=== PATIENT | female | born 1945 | race Caucasian/White ===

== ENCOUNTER 2021-09-18 13:30 | Outpatient (CLI) | payer MEDICARE, SELFPAY ==
--- NOTE | ~2021-09-18 | US_ITS ---
EXAMINATION: US carotid duplex BI DATE: 09/18/2021 14:07 INDICATION: Dizziness. Right hand numbness. TECHNIQUE: Grayscale, color Doppler, and pulsed Doppler images of the cervical carotid arteries were obtained. The degree of vessel stenosis is placed in one of the following categories: normal, <50%, 5 0-69%, >=70% but less than near-occlusion, near-occlusion, or total occlusion. Note that percent sten osis relative to normal distal artery lumen diameter is indirectly measured from velocity measurement s as described by Edwardo, et al. Radiology 2003; 229:340-346. COMPARISON: None. FINDINGS: RIGHT: The right common carotid artery (CCA) peak systolic velocity (PSV) is 99 cm/s. The right internal car otid artery (ICA) PSV is 80 cm/s. The right ICA end-diastolic velocity (EDV) is 27 cm/s. The right IC A/CCA PSV ratio is 0.8. Grayscale and color Doppler images yield an estimate of <50% diameter reducti on from plaque in the ICA. There is antegrade flow in the right vertebral artery. LEFT: The left CCA PSV is 66 cm/s. The left ICA PSV is 116 cm/s. The left ICA EDV is 40 cm/s. The left ICA/ CCA PSV ratio is 1.3. Grayscale and color Doppler images yield an estimate of <50% diameter reduction from plaque in the ICA. There is antegrade flow in the left vertebral artery. IMPRESSION: 1. <50% stenosis in the right internal carotid artery. 2. <50% stenosis in the left internal carotid artery. Reviewed, dictated and finalized at location A. [employer]
--- NOTE | ~2021-09-18 | CT_ITS ---
EXAMINATION: CT brain wo con DATE: 09/18/2021 14:08 INDICATION: Right hand numbness TECHNIQUE: Computed tomography (CT) of the head was performed without intravenous contrast. The dose- length product was 605.33 mGy-cm. Automated exposure control and iterative reconstruction technique w ere employed. COMPARISON: None FINDINGS: No acute intracranial hemorrhage, infarction, mass or mass effect. No ventriculomegaly or m idline shift. No ventriculomegaly or midline shift. Basilar cisterns are patent. Paranasal sinuses an d mastoids are pneumatized. There are scattered mild periventricular and subcortical white matter eloisa nges, most likely related to small vessel ischemic disease (microangiopathy). IMPRESSION: 1. No acute intracranial abnormality. 2: Chronic age-related findings. Reviewed, dictated and finalized at location B. [employer]
== END 2021-09-18 13:31 | disposition home or self-care (01) ==
PROVIDERS: PCP Family Medicine; Visit Provider Physician Assistant
DX: R42 Dizziness and giddiness (principal); E78.5 Hyperlipidemia, unspecified; I10 Essential (primary) hypertension; I65.23 Occlusion and stenosis of bilateral carotid arteries
CPT/HCPCS: 70450; 93880

== ENCOUNTER 2021-10-09 10:05 | Outpatient (CLI) | payer MEDICARE, SELFPAY ==
--- NOTE | ~2021-10-09 | MM_ITS ---
EXAMINATION: MM screening [facility] BI w liana HISTORY: Screening mammogram TECHNIQUE: Craniocaudal and mediolateral oblique 3-D tomosynthesis images were obtained and synthetic 2-D images were generated. CAD analysis was submitted and interpreted. COMPARISON: 02/15/2019, 10/10/2017, 08/03/2010 BREAST PARENCHYMAL COMPOSITION: There are scattered areas of fibroglandular density. FINDINGS: There is no suspicious mass, calcification, or architectural distortion to suggest malignan cy in either breast. There has been no suspicious interval change. IMPRESSION: 1. No mammographic evidence of malignancy. 2. Recommend routine screening mammography in one year. BI-RADS Category 1: Negative Reviewed, dictated and finalized at location A.
== END 2021-10-09 10:06 | disposition home or self-care (01) ==
LOC: ANHIMG 10:06
PROVIDERS: PCP Family Medicine; Visit Provider Physician Assistant
DX: Z12.31 Encounter for screening mammogram for malignant neoplasm of breast (principal)
CPT/HCPCS: 77063; 77067

== ENCOUNTER 2022-01-20 10:18 | Day surgery (SDC) | payer MEDICARE, SELFPAY ==
[2022-01-12 13:46] VITALS: BMI 25.4
--- NOTE | 2022-01-20 08:59 | WPDHPUPDATE1 ---
History and Physical Update Update Date/Time: 01/20/22 08:59 History and Physical has been reviewed, including an updated exam of the patient. There are NO changes in the patient's condition. Risks, benefits, and alternatives have been discussed and questions answered. Patient agrees to proceed with procedure.
[2022-01-20 10:50] VITALS: BP 144/74; PULSE 74; RESP 16; TEMP 37.3; O2SAT 98; BMI 26.2
[2022-01-20] MEDS: OFLOXACIN 0.3% OPHTH SOLN 5 ML BTL 1 DROP AFFCTD EYE (10:53)
[2022-01-20] MEDS: TETRACAINE HCL 0.5% OPHTH SOLN 4 ML BTL 1 DROP AFFCTD EYE ×3 (10:55→11:05)
--- NOTE | 2022-01-20 11:02 | P.PNAN_ITS ---
Anes - Initial Pre Proc Eval Procedure: Operation Date: 01/20/22 11:30 Proposed Procedures p Cataract Extraction with Lens Implant-Right Eye - Jose Aviles MD Date/Time: 01/20/22 11:02 Surgeon: Jose Aviles MD Pre Op Diagnosis: Cataract Right Eye Patient Data Age: 76 Gender: F Height: 1.55 m Weight: 63 kg Last Vital Signs Temp 37.3 C 01/20/22 10:50 Pulse 74 01/20/22 10:50 Resp 16 01/20/22 10:50 BP 144/74 H 01/20/22 10:50 Pulse Ox 98 01/20/22 10:50 O2 Del Method Room Air 01/20/22 10:50 Allergies Allergy/AdvReac Type Severity Reaction Status Date / Time Penicillins Allergy Unknown Hives Verified 01/20/22 10:38 Home Medications Medication Instructions Recorded Confirmed Type Adult Low Dose Aspirin 81 mg 01/20/22 History Patient hx anesthesia problems: none Family hx anesthesia problems: none Results Review: All pre-operative results and documents have been reviewed as part of the pre-o perative evaluation. [facility] Past Medical History Medical History Arthritis Family History Family History Mother Family history of Alzheimer's disease Social History Social History Smoking status: Never smoker Second hand tobacco smoke exposure: No Alcohol intake: never Substance use: never Living arrangements: with family Gender identity (if verbalized by the patient): Female Sexual Orientation (if Verbalized by the Patient): Straight or Heterosexual Spiritual care concerns: No Anes - Eval Final PreProcedure Day of Procedure 01/20/22 11:02 Patient weight: overweight Heart: regular rate and rhythm Lungs: clear to auscultation Airway: Mallampati scale class II Neurological: alert and oriented Last oral intake: >/= 8 hours ASA classification: II Emergent: no Anesthetic plan: proceed Anesthesia type and monitoring: monitored anesthesia care and standard monitoring Results Review: All pre-operative results and documents have been reviewed as part of the pre- operative evaluation. Informed Consent: The patient's anesthetic plan and its attendant risks and benefits were discussed with the patient/family/POA. Questions were solicited and answers provided to the satisfaction of the patient/family/POA.
[2022-01-20] MEDS: LIDOCAINE HCL 2% JELLY 5 ML TUBE 1 APPLIC AFFCTD EYE (11:10)
[2022-01-20 12:11] VITALS: BP 133/69; PULSE 64; RESP 64; O2SAT 100
--- NOTE | 2022-01-20 12:18 | WPDANESPN ---
Anes - Prog Note Post-Op Date/Time: 01/20/22 12:18 Cardiovascular status: normal Respiratory status: normal Airway patency: baseline Mental status: baseline Post-Op hydration status: normal Vital Signs: Last Vital Signs Temp 37.3 C 01/20/22 10:50 Pulse 74 01/20/22 10:50 Resp 16 01/20/22 10:50 BP 144/74 H 01/20/22 10:50 Pulse Ox 98 01/20/22 10:50 O2 Del Method Room Air 01/20/22 10:50 Pain Score (VAS): 0 Patient Feedback: Patient satisfied with anesthetic care.
--- NOTE | 2022-01-20 12:20 | W.PM.PROC2 ---
Procedure Note - Detailed Date of Procedure 01/20/22 Pre-op Diagnosis Cataract Right Eye Post-op Diagnosis Same Procedure Performed Cataract Extraction (by Phacoemulsification) and lntraocular Lens Implant Surgeon Jose Aviles MD Description of Procedure The eye was anesthetized with topical 0.75% bupivacaine. After intravenous sedation and placement of monitors, the patient was prepped and draped in the usual sterile manner. A lid speculum was placed. A paracentesis was made, and preservative free 1% lidocaine was instilled in the anterior chamber. The anterior chamber was then filled with Viscoat viscoelastic. A gerard keratome was used to create the wound. Continuous tear anterior capsulotomy was performed. The lens was hydro dissected before being removed with phacoemulsification. The remaining lenticular cortex was removed with aspiration. The capsular bag was polished and filled with viscoelastic material. An intraocular lens was chosen, inspected, irrigated and placed within the capsular bag where it was seen to be centered and stable. The viscoelastic material was aspirated. The wound was closed and found to be watertight. Ciloxan drops were placed in the eye. The speculum was removed. A Campa shield was applied. The patient tolerated the procedure well and left the operating room in satisfactory condition. Implants See chart Complications None Condition Stable Disposition Same day
[2022-01-20] MEDS: acetaZOLAMIDE TAB 250 MG TABLET PO (12:24)
== END 2022-01-20 12:44 | disposition home or self-care (01) ==
PROVIDERS: PCP Family Medicine
PROC: (CPT 66983; principal; 2022-01-20 11:30)
DX: H25.11 Age-related nuclear cataract, right eye (principal)
CPT/HCPCS: 66984

== ENCOUNTER 2023-02-22 08:41 | Outpatient (CLI) | payer MEDICARE, SELFPAY ==
--- NOTE | ~2023-02-22 | DEXA_ITS ---
Bone Density Report Name: MARIELLA TRINIDAD Age: 77 Sex: Female Ethnicity: White Date of : 1945 Indication: postmenopausal; screening for osteoporosis; Referring Provider: RICKI SEGOVIA Study: Bone densitometry was performed. Exam Date: February 22, 2023 Accession number: [id number] Bone Density: Region BMD T-score Z-score Classification AP Spine(L1-L4) 1.164 1.1 3.5 Normal Femoral Neck (Left) 0.871 0.2 2.3 Normal Total Hip (Left) 0.890 -0.4 1.4 Normal Femoral Neck (Right) 0.857 0.1 2.2 Normal Total Hip (Right) 0.884 -0.5 1.4 Normal Total Hip Mean 0.887 -0.5 1.4 Normal World Health Organization criteria for BMD impression classify patients as: Normal (T-score at or above -1.0), Osteopenia (T-score between -1.0 and -2.5), or Osteoporosis (T-score at or below -2.5). 10-year Fracture Risk: FRAX not reported because: All T-scores for Spine Total, Hip Total, Femoral Neck at or above -1.0 Previous Exams: Region Exam Age BMD T-score BMD Change BMD Change Date g/cm2 vs Baseline vs Previous AP Spine (L1-L4) 02/22/2023 77 1.164 1.1 0.034 (3.0%)* 0.034 (3.0%)* 03/22/2018 72 1.130 0.8 Total Hip(Left) 02/22/2023 77 0.890 -0.4 -0.159 (-15.1% -0.159 (-15.1% 03/22/2018 72 1.048 0.9 Total Hip(Right) 02/22/2023 77 0.884 -0.5 -0.079 (-8.2%) -0.079 (-8.2%) 03/22/2018 72 0.964 0.2 *Denotes significance at 95% confidence level, LSC for AP Spine = 0.022 g/cm2, LSC for Total Hip = 0.027 g/cm2 Clinical Information Provided by Patient: Has used the following medications: Vitamin D Patient maximum height was 61 Menopause Age: 56 No regular weight bearing exercise Drinks caffeinated beverages Onset of menses at age 16 Number of children 3 Impression: The patient has normal bone mass. The BMD for the Total Hip(Left) decreased, changing by -15.1% since the last DXA exam. The BMD for the Total Hip(Right) decreased, changing by -8.2% since the last DXA exam. Discussion: BONE DENSITY IS ABOVE THE MINIMUM DESIRABLE LEVEL AT ALL SKELETAL SITES TESTED. This patient?s bone mineral density is above the minimum desirable level (T-score -1.0 or better) at all sites measured. The patient should follow a healthful lifestyle (good nutrition with adequate calcium and vitamin D, and appropriate weight-bearing exercise). Follow-Up: Consider repeating this study in 3 to 4 years to reassess this patient's status, or sooner if ther
--- NOTE | ~2023-02-22 | MM_ITS ---
EXAMINATION: MM screening [facility] BI w liana HISTORY: Screening mammogram TECHNIQUE: Craniocaudal and mediolateral oblique 3-D tomosynthesis images were obtained and synthetic 2-D images were generated. CAD analysis was submitted and interpreted. COMPARISON: 10/09/2021, 02/15/2019, 10/10/2017 bilateral screening mammogram examinations BREAST PARENCHYMAL COMPOSITION: There are scattered areas of fibroglandular density. FINDINGS: There is no evidence of suspicious mass, calcification, or architectural distortion to sugg est malignancy in either breast. There has been no suspicious interval change. IMPRESSION: 1. No mammographic evidence of malignancy. 2. Recommend routine screening mammography in one year. BI-RADS Category 1: Negative Reviewed, dictated and finalized at location A.
== END 2023-02-22 08:42 | disposition home or self-care (01) ==
PROVIDERS: PCP Family Medicine; Visit Provider Physician Assistant
DX: Z12.31 Encounter for screening mammogram for malignant neoplasm of breast (principal); Z78.0 Asymptomatic menopausal state
CPT/HCPCS: 77063; 77067; 77080

== ENCOUNTER 2024-05-14 08:47 | Outpatient (CLI) | payer MEDICARE, SELFPAY ==
--- NOTE | ~2024-05-14 | MM_ITS ---
EXAMINATION: MM screening [facility] BI w liana HISTORY: Screening TECHNIQUE: Craniocaudal and mediolateral oblique 3-D tomosynthesis images were obtained and synthetic 2-D images were generated. CAD analysis was submitted and interpreted. COMPARISON: Comparison to multiple prior studies sequentially, with oldest reviewed study dated 10/10. BREAST PARENCHYMAL COMPOSITION: Not dense: There are scattered areas of fibroglandular density. FINDINGS: There is no evidence of suspicious mass, calcification, or architectural distortion to sugg est malignancy in either breast. There has been no suspicious interval change. IMPRESSION: 1. No mammographic evidence of malignancy. 2. Recommend routine screening mammography in one year. BI-RADS Category 1: Negative Reviewed, dictated and finalized at location B.
== END 2024-05-14 08:48 | disposition home or self-care (01) ==
LOC: ANHIMG 08:50
PROVIDERS: PCP Family Medicine; Visit Provider Family Medicine
DX: Z12.31 Encounter for screening mammogram for malignant neoplasm of breast (principal)
CPT/HCPCS: 77063; 77067

== ENCOUNTER 2024-10-19 21:12 | Observation (INO) | payer MEDICARE, SELFPAY ==
--- NOTE | ~2024-10-19 | CT_ITS ---
EXAMINATION: CT brain wo con DATE: 10/20/2024 01:27 INDICATION: Visual changes. Right hand numbness. TECHNIQUE: Computed tomography (CT) of the head was performed without intravenous contrast. The mA wa s adjusted according to patient size. Iterative reconstruction technique was employed. The dose-lengt h product was 681.00 mGy-cm. COMPARISON: Head CT 09/18/2021 FINDINGS: There are scattered areas of low attenuation in the cerebral white matter. There is no intr acranial hemorrhage, acute infarction, or abnormal intracranial mass lesion. The ventricles are janeth l in size. There are likely changes of ocular lens replacement surgeries. The paranasal sinuses are c lear. The mastoid air cells are normal. IMPRESSION: 1. Mild nonspecific cerebral white matter disease, which likely represents chronic small vessel ische marbella disease. Reviewed, dictated and finalized at location A. IMPRESSION: 1. 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
--- NOTE | ~2024-10-19 | MR_ITS ---
EXAMINATION: MR brain/brain stem wo/w con DATE: 10/20/2024 11:26 INDICATION: Right hand numbness. TECHNIQUE: Magnetic resonance imaging (MRI) of the brain and brainstem was performed without and with 13 mL ProHance intravenous contrast. COMPARISON: CT 10/20/2024 FINDINGS: There are scattered areas of nonspecific increased T2-weighted signal intensity in the cere bral white matter. There is no intracranial hemorrhage, acute infarction, or abnormal intracranial ma ss lesion. The ventricles are normal in size. The paranasal sinuses are clear. There are likely rogers es of ocular lens replacement surgeries. The mastoid air cells are normal. IMPRESSION: 1. Mild nonspecific cerebral white matter disease, which likely represents chronic small vessel ische marbella disease. Reviewed, dictated and finalized at location A. IMPRESSION: 1. 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
--- NOTE | ~2024-10-19 | CT_ITS ---
EXAMINATION: CTA brain carotid DATE: 10/20/2024 01:27 INDICATION: Right hand numbness. Vision change. TECHNIQUE: Computed tomographic angiography (CTA) of the head was performed with 100 mL Omnipaque-350 intravenous contrast. CTA of the neck was performed with intravenous contrast. Automated exposure co ntrol and iterative reconstruction technique were employed. The dose-length product was 990.89 mGy-cm . Maximum intensity projection and volume rendered 3D-reconstructions were created by the [employer] t on a separate workstation. COMPARISON: Head CT 10/20/2024 FINDINGS: HEAD CTA: There are scattered areas of low attenuation in the cerebral white matter. There is no intr acranial hemorrhage, acute infarction, or abnormal intracranial mass lesion. The ventricles are janeth l in size. There are likely changes of ocular lens replacement surgeries. There is mild mucosal thick ening in the paranasal sinuses. The mastoid air cells are normal. Left vertebral artery is dominant. There is no significant stenosis of basilar artery or the posterior cerebral arteries. There is no si gnificant stenosis of the intracranial internal carotid arteries or anterior or middle cerebral arter ies. Anterior communicating artery is normal. The posterior communicating arteries are normal. There is no aneurysm. NECK CTA: There is mild scarring at the lung apices. There are no pathologically enlarged lymph nodes . There is no significant stenosis of the vertebral arteries. There is minimal plaque in the proximal internal carotid arteries. There is 0% stenosis of the proximal right internal carotid artery relati ve to normal distal artery lumen diameter (NASCET criteria). There is 0% stenosis of the proximal lef t internal carotid artery relative to normal distal artery lumen diameter. There is severe cervical s pondylosis. IMPRESSION: 1. Mild nonspecific cerebral white matter disease, which likely represents chronic small vessel ische marbella disease. 2. No aneurysm or significant intracranial arterial stenosis. 3. 0% stenosis of the proximal internal carotid arteries relative to normal distal artery lumen diame ters (NASCET criteria). Reviewed, dictated and finalized at location A. IMPRESSION: 1. 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 2. No aneurysm or significant intracranial arterial stenosis. 3. 0% stenosis of the proximal internal carotid arteries relative to normal dis scott artery lumen diameters (NASCET criteria).
--- NOTE | ~2024-10-19 | XR_ITS ---
EXAMINATION: XR chest 1V portable DATE: 10/20/2024 00:53 INDICATION: Cerebrovascular accident. TECHNIQUE: A single frontal view of the chest was obtained. COMPARISON: None. FINDINGS: There is no pneumonia, pleural effusion or pneumothorax. The heart size is normal. IMPRESSION: 1. No acute cardiopulmonary disease. Reviewed, dictated and finalized at location A.
--- OUTSIDE RECORDS SUMMARY | 2024-10-19 21:15 | XMS_ITS | Continuity of Care Document ---
Author Organization [facility] Address [address] [place] [address] Phone Care Team Providers Care Diet Attendant Name Role Phone Unavailable Unavailable Unavailable Allergies, Adverse Reactions, Alerts Substance Reaction Status Criticality Penicillins Rash Active No Information Procedures Procedure Date PER PM REEVAL EST PAT 65+ YR OFFICE/OUTPATIENT VISIT, [facility] Advance Directives Directive Yes / No Effective Date File Name No Information Encounters Encounter Description Practice Location Reason(s) For Visit Diagnoses Date Provider Providers Copied on Encounter [facility], [address] [place] [address], tel:[phone] [place] No Information 5 No Information PER PM REEVAL EST PAT 65+ YR [facility], [address] [place] [address], tel:[phone] [place] preventive exam (chief complaint) Physical exam, [facility] 4 Mario Manjula. [address] [place] [address], . tel:[phone] OFFICE/OUTPA TIENT VISIT, [facility], [address] [place] [address], tel:[phone] [place] cold symptoms (chief complaint) Acute bacterial rhinosinusiti s 4 Mario Manjula. [address] [place] [address]. [phone] Family History Family Member Type Diagnosis Age At Onset Maternal grandmother Problem (finding) at 93, Na tural Causes Brother Problem (finding) Alive and well Mother Problem (finding) alzheimer's disease Father Problem (finding) Mesothelioma Maternal grandfather Problem (finding) Heart Disease, at 79 Sister Problem (finding) epilepsy Paternal grandmother Problem (finding) at 103 Na tural Causes Sister Problem (finding) Alive and well Paternal grandfather Problem (finding) at 78 Isabella ural Causes Payers Payer name Insurance type Covered green party ID Authoriza tion(s) No Information Social History Type Description Quantity Date Captured Comments Sex Female Smoking Status No Information Chief Complaint And Reason For Visit No Information Reason For Referral Reason For Referral No Information History Of Present Illness Encounter Date Complaint History Of Prese nt Illness preventive exam Negative for men orrhagia. Details: Had one irregular pap 10-12 years ago otherwise always normal, last mammogram about 2 years ago normal. Negative for: breast discharge, breast lump(s) and breast pain. Positive for: breast self exam. Menopausal symptoms negative for: hot flashes and night sweats. Pertinent negatives include depression, vaginal discharge and vaginal itching. Additional information: (Healthy 67 year old active female, takes no medications. Labs 2 years ago, normal. Will need to get records from previous office. Has never had colonoscopy. Dexa scan about 2 years ago here. Gets yearly eye exams at [facility]. (We will have to get records to review. Patient is not interested today in colonoscopy or stool cards but will consider) cold symptoms Onset: 1 week ag o. Severity: severe. The patient describes the cough as persistent and productive (of green sputum). It occurs persistently. The problem has become gradually worse. Context: sick family member. There are no aggravating factors. There are no relieving factors. Associated symptoms include chills, cough, fatigue, fever, hoarseness, nasal congestion, post-nasal drainage and rhinitis. The patient does not have a history of allergies or asthma. Additional information: (Has been taking Mucinex with out relief. No chronic sinus problems or allergies. Did not get the flu shot this year. A few days ago seemed to improve but then got worse again last day or so). Functional Status Date Functional Assessmen t No Information Instructions Date Instruction Additional Infor nereyda Consider colonoscopy or stool ca rds Related to Physical exam, annual Increase fluids Related to Lower respiratory tract infection Patient instructed o n use of saline sprays. Related to Acute bacterial rhinosinusitis Tylenol of needed Related to Acu te bacterial rhinosinusitis Assessments Type Assessment Date No Information Patient Care Teams Name Effective Dates (start - stop) Status Members No Information
--- OUTSIDE RECORDS SUMMARY | 2024-10-19 21:15 | XMS_ITS | Continuity of Care Document ---
Author Organization [employer] Address [address] [place] [address] Phone Care Team Providers Care Associate Civil Engineer Name Role Phone Gentry PT,MPT,ATC, Vel Unavailable Unavai lable Procedures Procedure Date Therapeutic Activities Neuromuscular Re-Ed Therapeutic Exercise Therapeutic Activities Neuromuscular Re-Ed Therapeutic Exercise Therapeutic Activities Neuromuscular Re-Ed Therapeutic Exercise Manual Therapy Therapeutic Activities Neuromuscular Re-Ed Therapeutic Exercise Manual Therapy Therapeutic Activities Neuromuscular Re-Ed Therapeutic Exercise Manual Therapy Therapeutic Activities Neuromuscular Re-Ed Therapeutic Exercise Manual Therapy Therapeutic Activities Neuromuscular Re-Ed Therapeutic Exercise Manual Therapy Therapeutic Activities Neuromuscular Re-Ed Therapeutic Exercise Manual Therapy Therapeutic Activities Neuromuscular Re-Ed Therapeutic Exercise Manual Therapy Therapeutic Activities Neuromuscular Re-Ed Therapeutic Exercise Therapeutic Activities Neuromuscular Re-Ed Therapeutic Exercise Therapeutic Activities Neuromuscular Re-Ed Therapeutic Exercise Therapeutic Activities Neuromuscular Re-Ed Therapeutic Exercise Therapeutic Activities Neuromuscular Re-Ed Therapeutic Exercise Therapeutic Activities Neuromuscular Re-Ed Therapeutic Exercise Therapeutic Activities Neuromuscular Re-Ed Therapeutic Exercise Therapeutic Activities Neuromuscular Re-Ed Therapeutic Exercise Doc neg elder mal no plan PRES/ABSN URINE INCON ASSESS PT Evaluation Low Complexity Therapeutic Activities Neuromuscular Re-Ed Therapeutic Exercise Advance Directives Directive Yes / No Effective Date File Name No Information Encounters Encounter Description Practice Location Reason(s) For Visit Diagnoses Date Provider Providers Copied on Encounter [facility] [place] [address] [place] [address], [id number], tel:[phone] [place] No Information 4 [place], [place], . [facility] [place] [address] [place] [address], [id number], tel:[phone] [place] No Information 3 [place]. . Referring Provider: Mercedes Lopez, [address] [place], [address]. tel:[phone] [facility], [place], [id number], tel:[phone] [place] No Information 3 [place]. . Referring Provider: Mercedes Lopez, [address] [place], [address]. tel:[phone] [place] [address], [address], [place], [place], [id number], [place] tel:[phone] [place] No Information Jun-07 25- 3 [place]. . Referring Provider: Mercedes Lopez, [address] [place], [address]. tel:[phone] [place] [address] [address], [place], [id number], [place] tel:[phone] [place] No Information Dec-0 6- 3 [place]. . Referring Provider: Mercedes Lopez, [address] [place], [address]. tel:[phone] [place] [address], [address] [facility] [address], [place], [place], [id number], [place] tel:[phone] [place] No Information Dec-0 - 3 [place]. . Referring Provider: Mercedes Lopez, [address] [place], [address]. tel:[phone] [place] [address] [address], [place], [place], [id number], [place] tel:[phone] [place] No Information 2 3 [place]. . Referring Provider: Mercedes Lopez, [address] [place], [address]. tel:[phone] [place] [address], [address], [place], [place], [id number], [place] tel:[phone] [place] No Information 2 [facility] [place] [place]. Referring Provider: Mercedes Lopez, [address] [place], [address]. tel:[phone] [place] [address], [address], [place], [place], [id number], [place] tel:[phone] [place] No Information Nov-2 0-202 3 [place]. . Referring Provider: Mercedes Lopez, [address] [place] [address], [address]. tel:[phone] [place] [address], [address] [facility], [place], [place], [id number], tel:[phone] [place] No Information Nov-1 5-202 3 [place]. . Referring Provider: Mercedes Lopez, [address] [place] [address], [address]. tel:[phone] [place] [address] [place], [place] [address], [place], [place], [id number], [place] tel:[phone] [place] [address] No Information Nov-1 3-202 3 [place]. . Referring Provider: Mercedes Lopez, [address] [place] [address], [address]. tel:[phone] [place] [address] [address] [facility] [address], [place], [place], [id number], [place] tel:[phone] [place] [address] No Information Nov-0 8-202 3 [place]. . Referring Provider: Mercedes Lopez, [address] [place], [address]. tel:[phone] [place] [address] [place] [address], [place], [place], [id number], [place] tel:[phone] [place] No Information Nov-0 6-202 3 [place]. . Referring Provider: Mercedes Lopez, [address] [place] [address], [address]. tel:[phone] [place] [address] [address] [address], [place], [place], [id number], [place] tel:[phone] [place] No Information Nov-0 1-202 3 [place]. . Referring Provider: Mercedes Lopez, [address] [place] [address], [address]. tel:[phone] [place] [address] [address] [facility], [place], [place], [id number], [place] tel:[phone] [place] No Information 0-202 3 [place]. . Referring Provider: Mercedes Lopez, [address] [place], [address]. tel:[phone] [place] [address] [address] [address], [place], [place], [id number], [place] tel:[phone] [place] No Information Apr- 5-202 3 [place]. . Referring Provider: Mercedes Lopez, [address] [place] [address], [address]. tel:[phone] [place] [address], [id number], tel:[phone] [place] No Information 3-202 3 [place]. . Referring Provider: Mercedes Lopez, [address] [place], [address]. tel:[phone] [facility] [address], [id number], tel:[phone] [place] No Information 8- 3 [place]. . Referring Provider: Mercedes Lopez, [address] [place], [address]. tel:[phone] [facility] [address], [id number], tel:[phone] [place] Unspecified urinary incontinence 6- 3 [place]. . Referring Provider: Mercedes Lopez, [address] [place], [address]. tel:[phone] Family History Family Member Type Diagnosis Age At Onset No Information Payers Payer name Insurance type Covered democrat ID Mike castro(s) [employer] [id number] Social History Type Description Quantity Date Captured Comments Sex Female Smoking Status No Information Chief Complaint And Reason For Visit No Information Reason For Referral Reason For Referral No Information History Of Present Illness Encounter Date Complaint History Of Prese nt Illness No Information Functional Status Date Functional Assessmen t No Information Instructions Date Instruction Additional Infor mation Giving encouragement to exercise Related to Overweight Giving encouragement to exercise Related to Overweight Kegel exercises were explained to the patient. Related to Unspecified urinary incontinence Assessments Type Assessment Date No Information Patient Care Teams Name Effective Dates (start - stop) Status Members No Information
[2024-10-19 21:18] LABS: Glucose Point of Care 100 mg/dl (65-105)
[2024-10-19 21:25] VITALS: BP 163/73; PULSE 81; RESP 18; TEMP 36.8; O2SAT 98
--- OUTSIDE RECORDS SUMMARY | 2024-10-19 23:40 | XMS_ITS | Continuity of Care Document ---
Author Organization [facility] Address [address] [place] [address] Phone Care Team Providers Care Bingo Caller Name Role Phone Unavailable Unavailable Unavailable Allergies, Adverse Reactions, Alerts Substance Reaction Status Criticality Penicillins Rash Active No Information Procedures Procedure Date PER PM REEVAL EST PAT 65+ YR OFFICE/OUTPATIENT VISIT, [facility] Advance Directives Directive Yes / No Effective Date File Name No Information Encounters Encounter Description Practice Location Reason(s) For Visit Diagnoses Date Provider Providers Copied on Encounter [facility], [address] [place] [address], tel:[phone] K[place] No Information 5 No Information PER PM REEVAL EST PAT 65+ YR [facility], [address] [place] [address], tel:[phone] Kila preventive exam (chief complaint) [facility] 4 Mario Manjula. [address] [place] [address], . tel:[phone] OFFICE/OUTPA TIENT VISIT, [facility], [address] [place] [address], tel:[phone] Kila cold symptoms (chief complaint) Acute bacterial rhinosinusiti s 4 Mario Manjula. [address] [place] [address]. [phone] Family History Family Member Type Diagnosis Age [...] Causes Payers Payer name Insurance type Covered democrat ID Authoriza tion(s) No Information Social History [...] ago here. Gets yearly eye exams at [facility]. (We will have to get records to [...]
--- OUTSIDE RECORDS SUMMARY | 2024-10-19 23:40 | XMS_ITS | Continuity of Care Document ---
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 Name Role Phone Gentry PT,MPT,ATC, Vel Unavailable Unavai lable Procedures Procedure Date Therapeutic Activities Neuromuscular Re-Ed Therapeutic Exercise Therapeutic Activities Neuromuscular Re-Ed Therapeutic Exercise Therapeutic Activities Neuromuscular Re-Ed Therapeutic Exercise Manual Therapy Therapeutic Activities Therapeutic Exercise Neuromuscular Re-Ed Manual Therapy Therapeutic Activities Neuromuscular Re-Ed Therapeutic [...] Diagnoses Date Provider Providers Copied on Encounter [facility] [place] [address], [id number], tel:[phone] [place] No Information 4 [place], [place], . [facility] [place] [address], [id number], tel:[phone] [place] No Information 3 Oh[place]orge Baljeet. . Referring Provider: Mercedes Lopez, [address] [place], [address]. tel:[phone] [facility], [place], [place], [id number], tel:[phone] [place] No Information 3 [place] Baljeet. . Referring Provider: Mercedes Lopez, [address] [place], [address]. tel:[phone] [place] [address], [address], [place], [place], [id number], [place] tel:[phone] [place] No Information Jun-07 25- 3 [place] Baljeet. . Referring Provider: Mercedes Lopez, [address] [place], [address]. tel:[phone] [place] [address] [address], [place], [place], [id number], [place] tel:[phone] [place] No Information Dec-0 6- 3 [place] Baljeet. . Referring Provider: Mercedes Lopez, [address] [place], [address]. tel:[phone] [place] [address], [address], [place], [place], [id number], [place] tel:[phone] [place] No Information Dec-0 - 3 [place] Baljeet. . Referring Provider: Mercedes Lopez, [address] [place], [address]. tel:[phone] [place] [address] [address], [place], [place], [id number], [place] tel:[phone] [place] No Information 2 3 [place] Baljeet. . Referring Provider: Mercedes Lopez, [address] [place], [address]. tel:[phone] [place] [address], [address], [place], [place], [id number], [place] tel:[phone] [place] No Information 2 [facility] [place] [place]. Referring Provider: Mercedes Lopez, [address] [place], [address]. tel:[phone] [place] [address], [address], [place], [place], [id number], [place] tel:[phone] [place] No Information Nov-2 0-202 3 [place] Baljeet. . Referring Provider: Mercedes Lopez, [address] [place] [address], [address]. tel:[phone] [place] [address], [address], [place], [place], [id number], tel:[phone] [place] No Information Nov-1 5-202 3 [place] Baljeet. . Referring Provider: Mercedes Lopez, [address] [place] [address], [address]. tel:[phone] [place] [address] [place], [place] [address], [place], [place], [id number], [place] tel:[phone] [place] [address] No Information Nov-1 3-202 3 Oh[place]orge Baljeet. . Referring Provider: Mercedes Lopez, [address] [place] [address], [address]. tel:[phone] [place] [address] [address] [facility] [address], [place], [id number], [place] tel:[phone] [place] [address] No Information Nov-0 8-202 3 [place] Baljeet. . Referring Provider: Mercedes Lopez, [address] [place], [address]. tel:[phone] [place] [address] [place] [address], [place], [place], [id number], [place] tel:[phone] [place] No Information Nov-0 6-202 3 [place] Baljeet. . Referring Provider: Mercedes Lopez, [address] [place] [address], [address]. tel:[phone] [place] [address] [address] [address], [place], [place], [id number], [place] tel:[phone] [place] No Information Nov-0 1-202 3 Oh[place]orge Baljeet. . Referring Provider: Mercedes Lopez, [address] [place] [address], [address]. tel:[phone] [place] [address] [address] [facility], [place], [id number], [place] tel:[phone] [place] No Information 0-202 3 [place] Baljeet. . Referring Provider: Mercedes Lopez, [address] [place], [address]. tel:[phone] [place] [address] [address] [address], [place], [place], [id number], [place] tel:[phone] [place] No Information Apr- 5-202 3 Oh[place]orge Baljeet. . Referring Provider: Mercedes Lopez, [address] [place] [address], [address]. tel:[phone] [place] [address], [id number], tel:[phone] [place] No Information 3-202 3 [place] Baljeet. . Referring Provider: Mercedes Lopez, [address] [place], [address]. tel:[phone] [facility] [address], [id number], tel:[phone] [place] No Information 8- 3 Oh[place]orge Baljeet. . Referring Provider: Mercedes Lopez, [address] [place], [address]. tel:[phone] [facility] [address], [id number], tel:[phone] [place] Unspecified urinary incontinence 6- 3 [place]in Linden. . Referring Provider: Mercedes Lopez, [address] [place], [address]. tel:[phone] Family History Family Member Type Diagnosis Age At Onset No Information Payers Payer name Insurance type Covered constitution party ID Mike castro(s) [employer] [id number] Social History Type Description Quantity Date Captured [...]
[2024-10-19 23:46] VITALS: BP 144/68; PULSE 75; RESP 17; O2SAT 97
[2024-10-19 23:52] VITALS: PULSE 78; RESP 17; O2SAT 97
[2024-10-20] VITALS (29 sets, daily range): BP systolic 104–142; BP diastolic 48–71; PULSE 61–82; RESP 12–32; TEMP 36.3; O2SAT 95–100; BMI 27.1
--- NOTE | 2024-10-20 00:09 | ECG_ITS ---
Test Date: 2024-10-20 00:20:35 Measurements Intervals [place]win Rate: 73 P: 34 IN: 159 QRS: -21 QRSD: 90 T: 29 QT: 369 QTc: 409 Interpretive Statements SINUS RHYTHM LOW QRS VOLTAGE IN PRECORDIAL LEADS [QRS DEFLECTION < 1.0 mV IN CHEST LEADS] POSSIBLE RIGHT VENTRICULAR CONDUCTION DELAY [RSR (QR) IN V1/V2] MINIMAL VOLTAGE CRITERIA FOR LVH, CONSIDER NORMAL VARIANT [MEETS CRITERIA IN ONE OF: R(aVL), S(V1), R(V5), R(V5/V6)+S(V1)] POSSIBLE ANTERIOR MYOCARDIAL INFARCTION , OF INDETERMINATE AGE [30 ms Q WAVE IN V3/V4, OR R < 0.2 mV IN V4] ABNORMAL ECG Electronically Signed On 10-20-2024 10:01:41 CDT by Nader Hernandez M.D.
[2024-10-20 00:25] LABS: Glucose Point of Care 106 mg/dl (65-105)
[2024-10-20 00:27] LABS: Basophils Absolute Auto 0.1 K/mm3 (0.0-0.1); Basophils Percent Auto 0.6 % (0.2-1.2); Eosinophils Percent Auto 0.3 % (0-4.4); Hematocrit 39.6 % (37.0-47.0); Hemoglobin 12.5 g/dL (12.0-15.0); Immature Granulocyte Absolute 0.04 K/mm3 (0.00-0.031); Immature Granulocyte Percent A 0.5 % (0-0.5); Lymphocytes Absolute Auto 2.23 K/mm3 (0.9-3.2); Lymphocytes Percent Auto 25.6 % (18.3-44.2); Mean Corpuscular HGB Conc 31.6 g/dl (32-36); Mean Corpuscular Hemoglobin 25.6 pg (26-34); Mean Corpuscular Volume 81.1 fl (80-100); Mean Platelet Volume 9.7 fl (7.4-10.4); Monocytes Absolute Auto 0.6 K/mm3 (0.1-0.6); Monocytes Percent Auto 6.7 % (2.6-8.5); Neutrophils Absolute Auto 5.8 K/mm3 (1.3-6.7); Neutrophils Percent Auto 66.3 % (45.5-73.1); Platelet Count Result 228 k/mm3 (150-375); Red Blood Count 4.88 M/mm3 (4.2-5.4); Red Cell Distribution Width 14.2 % (11.5-14.5); White Blood Count 8.7 K/mm3 (4.5-10.0)
[2024-10-20 00:39] LABS: INR 0.9; Prothrombin Time 12.7 Seconds (11.1-14.7)
[2024-10-20 00:41] LABS: Alanine Aminotransferase 17 U/L (6-35); Albumin Level 4.5 g/dL (3.5-5.1); Alkaline Phosphatase 98 U/L (38-126); Anion Gap 11 mmol/L (4-12); Aspartate Amino Transferase 22 U/L (14-36); Bilirubin,Total 0.5 mg/dL (0.2-1.3); Blood Urea Nitrogen 22 mg/dL (7-17); Calcium 9.6 mg/dL (8.4-10.2); Carbon Dioxide 23 mmol/L (22-30); Chloride 105 mmol/L (98-107); Estimated CRCL calculation 46 ml/min; Estimated Glomerular Filt Rate > 60; Glucose 105 mg/dL (65-110); Potassium 3.9 mmol/L (3.4-5.0); Sodium 139 mmol/L (137-145)
[2024-10-20 00:52] LABS: Troponin I < 0.012 ng/mL (0.000-0.034)
--- NOTE | 2024-10-20 02:43 | ED_ITS ---
HPI - General Adult General Chief complaint: Altered Mental Status Stated complaint: vision Time Seen by Provider: 10/19/24 23:23 History of Present Illness HPI narrative: This is a 78-year-old female presenting for altered mental status. At 7:00 p.m. the patient was sitting with her watching TV. All the sudden she developed visual changes which she describes as wavy lines in front of her vision and she developed right hand numbness. During this time when she was talking to her she could not recall many normal events that happened day. He did not notice any slurred speech or facial droop but stated her speech pattern had changed. This lasted approximately 30 minutes before she returned back to baseline. Related Data Home Medications ?Medication ?Instructions ?Recorded ?Confirmed ?Last Taken ?Type No Home Medications 11/04/23 09/05/24 Unknown History Allergies Allergy/AdvReac Type Severity Reaction Status Date / Time Penicillins Allergy Unknown Hives Verified 10/19/24 21:15 [facility] Past Medical History Medical History Arthritis Family History Family History Mother Family history of Alzheimer's disease Social History Social History Smoking status: Never smoker Second hand tobacco smoke exposure: No Alcohol intake: never Substance use: never Living arrangements: with family Occupation/Education: retired Gender identity (if verbalized by the patient): Female Sexual Orientation (if Verbalized by the Patient): Straight or Heterosexual Spiritual care concerns: No Exam 2 Narrative: APPEARANCE: No apparent distress. Head: atraumatic. EYES: EOMI, NOSE: Atraumatic NECK: Trachea midline RESPIRATORY: No increased rate of breathing CARDIOVASCULAR: RRR, ABDOMINAL: Non-distended MUSCULOSKELETAl: No obvious deformities NEURO: Alert. Cranial nerves 2-12 grossly intact. Sensation light touch, motor function cerebellar function intact for 4 extremities. Gait exam was normal. SKIN:: Warm, dry. Normal color PSYCHIATRIC: Normal affect NIH Stroke Scale/Score (NIHSS) from [employer] on 10/20/2024 All calculations should be rechecked by clinician prior to use RESULT SUMMARY: 0 points NIH Stroke Scale INPUTS: 1A: Level of consciousness ?> 0 = Alert; keenly responsive 1B: Ask month and age ?> 0 = Both questi ons right 1C: 'Blink eyes' & 'squeeze hands' ?> 0 = Performs both tasks 2: Horizontal extraocular movements ?> 0 = Normal 3: Visual pierre ?> 0 = No visual loss 4: Facial palsy ?> 0 = Normal symmetry 5A: Left arm motor drift ?> 0 = No drift for 10 seconds 5B: Right arm motor drift ?> 0 = No drif t for 10 seconds 6A: Left leg motor drift ?> 0 = No drift for 5 seconds 6B: Right leg motor drift ?> 0 = No drif t for 5 seconds 7: Limb Ataxia ?> 0 = No ataxia 8: Sensation ?> 0 = Normal; no sensory l oss 9: Language/aphasia ?> 0 = Normal; no ap hasia 10: Dysarthria ?> 0 = Normal 11: Extinction/inattention ?> 0 = No abn ormality Course Vital Signs Vital signs: Vital Signs Temperature 98.2 F 10/19/24 21:25 Pulse Rate 81 10/19/24 21:25 Respiratory Rate 18 10/19/24 21:25 Blood Pressure 163/73 H 10/19/24 21:25 Pulse Oximetry 98 10/19/24 21:25 Oxygen Delivery Room Air 10/19/24 21:25 Temperature 98.2 F 10/19/24 21:25 Pulse Rate 66 10/20/24 03:01 Respiratory Rate 17 10/20/24 03:01 Blood Pressure 136/69 10/20/24 03:01 Pulse Oximetry 98 10/20/24 03:01 Oxygen Delivery Room Air 10/20/24 00:28 Medical Decision Making [facility] Narrative Medical decision making narrative: -Course: 78-year-old female presenting with a 30 minute episode of confusion/forgetfulness and right hand numbness. She is currently asymptomatic. NIH is 0. CT brain unremarkable. CTA without significant stenosis or dissection. Urine with 11-20 white blood cells and +1 leuk esterase. She will be started on ceftriaxone until culture results return. Patient will be admitted the hospital for further evaluation her transient neurologic event. -DDX includes but is not limited to: TIA/CVA, dehydration, Infection, delirium, transient amnesia -Independent interpretation of studies: Labs imaging reviewed Independent EKG interpretation: Rhythm [sinus], Rate [73], [place] -[normal], MI -[normal], QRS [narrow], QTC [normal], T waves -[negative for concerning inversions], ST Segments - [Negative for concerning elevations] Final interpretations: [Normal Sinus Rhythm] Vital Signs Vital Signs: Vital Signs Temperature 98.2 F 10/19/24 21:25 Pulse Rate 81 10/19/24 21:25 Respiratory Rate 18 10/19/24 21:25 Blood Pressure 163/73 H 10/19/24 21:25 Pulse Oximetry 98 10/19/24 21:25 Oxygen Delivery Room Air 10/19/24 21:25 Temperature 98.2 F 10/19/24 21:25 Pulse Rate 66 10/20/24 03:01 Respiratory Rate 17 10/20/24 03:01 Blood Pressure 136/69 10/20/24 03:01 Pulse Oximetry 98 10/20/24 03:01 Oxygen Delivery Room Air 10/20/24 00:28 Lab Data 10/20/24 00:19 10/20/24 00:19 Labs: Lab Results 10/19/24 10/20/24 10/20/24 Range/Units 21:16 00:19 00:22 WBC 8.7 (4.5-10.0) K/mm3 RBC 4.88 (4.2-5.4) M/mm3 Hgb 12.5 (12.0-15.0) g/dL Hct 39.6 (37.0-47.0) % MCV 81.1 (80-100) fl MCH 25.6 L (26-34) pg MCHC 31.6 L (32-36) g/dl RDW 14.2 (11.5-14.5) % Plt Count 228 (150-375) k/mm3 MPV 9.7 (7.4-10.4) fl Immature Gran % (Auto) 0.5 (0-0.5) % Neut % (Auto) 66.3 (45.5-73.1) % Lymph % (Auto) 25.6 (18.3-44.2) % [place] % (Auto) 6.7 (2.6-8.5) % Eos % (Auto) 0.3 (0-4.4) % Baso % (Auto) 0.6 (0.2-1.2) % Lymph # (Auto) 2.23 (0.9-3.2) K/mm3 [place] # (Auto) 0.6 (0.1-0.6) K/mm3 Eos # (Auto) 0.0 (0-0.3) K/mm3 Baso # (Auto) 0.1 (0.0-0.1) K/mm3 Abs Immat Gran (auto) 0.04 H (0.00-0.031) K/mm3 Absolute Neuts (auto) 5.8 (1.3-6.7) K/mm3 Absolute Nucleated RBC 0.000 (0.0-0.012) K/mm3 Nucleated RBC % 0.0 (0.0-0.2) % PT 12.7 (11.1-14.7) Seconds INR 0.9 APTT 27.0 (22.3-36.8) Seconds Sodium 139 (137-145) mmol/L Potassium 3.9 (3.4-5.0) mmol/L Chloride 105 (98-107) mmol/L Carbon Dioxide 23 (22-30) mmol/L Anion Gap 11 (4-12) mmol/L BUN 22 H (7-17) mg/dL Creatinine 0.75 (0.7-1.0) mg/dL Estim Creat Clear Calc 46 ml/min Estimated GFR > 60 (59 - ) Glucose 105 (65-110) mg/dL POC Capillary Glucose 100 106 H (65-105) mg/dl Calcium 9.6 (8.4-10.2) mg/dL Total Bilirubin 0.5 (0.2-1.3) mg/dL AST 22 (14-36) U/L ALT 17 (6-35) U/L Alkaline Phosphatase 98 (38-126) U/L Troponin I < 0.012 (0.000-0.034) ng/mL Total Protein 7.0 (6.3-8.2) g/dL Albumin 4.5 (3.5-5.1) g/dL Urine Color (Yellow) Urine Appearance (Clear) Urine pH (5.0-9.0) Ur Specific [place] (1.001-1.035) Urine Protein (Negative) mg/dL Urine Glucose (UA) (Negative) mg/dL Urine Ketones (Negative) mg/dL Ur Blood (Man) (Negative) Urine Nitrate (Negative) Urine Bilirubin (Negative) Urine Urobilinogen (<2.0) mg/dL Leukocyte Esterase Rfl (Negative) LAKE/UL Urine RBC (0-2) /hpf Urine WBC (0-3) /hpf Ur Squamous Epith Cells (Few) /hpf Urine Bacteria /hpf Urine Casts 10/20/24 Range/Units 02:52 WBC (4.5-10.0) K/mm3 RBC (4.2-5.4) M/mm3 Hgb (12.0-15.0) g/dL Hct (37.0-47.0) % MCV (80-100) fl MCH (26-34) pg MCHC (32-36) g/dl RDW (11.5-14.5) % Plt Count (150-375) k/mm3 MPV (7.4-10.4) fl Immature Gran % (Auto) (0-0.5) % Neut % (Auto) (45.5-73.1) % Lymph % (Auto) (18.3-44.2) % [place] % (Auto) (2.6-8.5) % Eos % (Auto) (0-4.4) % Baso % (Auto) (0.2-1.2) % Lymph # (Auto) (0.9-3.2) K/mm3 [place] # (Auto) (0.1-0.6) K/mm3 Eos # (Auto) (0-0.3) K/mm3 Baso # (Auto) (0.0-0.1) K/mm3 Abs Immat Gran (auto) (0.00-0.031) K/mm3 Absolute Neuts (auto) (1.3-6.7) K/mm3 Absolute Nucleated RBC (0.0-0.012) K/mm3 Nucleated RBC % (0.0-0.2) % PT (11.1-14.7) Seconds INR APTT (22.3-36.8) Seconds Sodium (137-145) mmol/L Potassium (3.4-5.0) mmol/L Chloride (98-107) mmol/L Carbon Dioxide (22-30) mmol/L Anion Gap (4-12) mmol/L BUN (7-17) mg/dL Creatinine (0.7-1.0) mg/dL Estim Creat Clear Calc ml/min Estimated GFR (59 - ) Glucose (65-110) mg/dL POC Capillary Glucose (65-105) mg/dl Calcium (8.4-10.2) mg/dL Total Bilirubin (0.2-1.3) mg/dL AST (14-36) U/L ALT (6-35) U/L Alkaline Phosphatase (38-126) U/L Troponin I (0.000-0.034) ng/mL Total Protein (6.3-8.2) g/dL Albumin (3.5-5.1) g/dL Urine Color Yellow (Yellow) Urine Appearance Clear (Clear) Urine pH 5.5 (5.0-9.0) Ur Specific [place] > 1.045 H (1.001-1.035) Urine Protein Negative (Negative) mg/dL Urine Glucose (UA) Negative (Negative) mg/dL Urine Ketones Negative (Negative) mg/dL Ur Blood (Man) Non-hemolyzed trace H (Negative) Urine Nitrate Negative (Negative) Urine Bilirubin Negative (Negative) Urine Urobilinogen 0.2 (<2.0) mg/dL Leukocyte Esterase Rfl 1+ H (Negative) LAKE/UL Urine RBC 0-2 (0-2) /hpf Urine WBC 11-20 H (0-3) /hpf Ur Squamous Epith Cells None seen (Few) /hpf Urine Bacteria None seen /hpf Urine Casts 0-2 Discharge Plan Discharge Clinical Impression: Transient amnesia, Acute UTI, Hand numbness Patient Disposition: Home, Self-Care Condition: Stable Instructions: Antibiotic Form Patient Language: Bulgarian Prescriptions: No Action amlodipine 5 mg tablet 5 mg PO DAILY Qty: 90 1RF No Home Medications Follow-up/Referrals: Eddie Bravo MD [Primary Care Provider] -
[2024-10-20 03:04] LABS: Add Urine Microscopic? YES; Appearance Urine Clear (Clear); Bacteria Urine None Seen /hpf; Bilirubin Urine Negative (Negative); Blood Urine Non-Hemolyzed Trace (Negative); Color Urine Yellow (Yellow); Glucose Urine UA Negative (Negative); Ketones Urine Negative (Negative); Leukocyte Esterase Ur 1+ LEU/UL (Negative); Nitrate Urine Negative (Negative); Non Pathogenic Casts 0-2; Protein Urine Negative (Negative); RBC Urine 0-2 /hpf (0-2); Specific Grav Ur > 1.045 (1.001-1.035); Squamous Epithelial Cell Urine None Seen /hpf (Few); Urobilinogen Urine 0.2 mg/dL (<2.0); pH Urine 5.5 (5.0-9.0)
[2024-10-20] MEDS: SODIUM CHLORIDE 0.9% IV 1,000 ML 999 ML IV CONT (03:50)
--- NOTE | 2024-10-20 05:00 | ADMGEN ---
This patient, Josey Vazquez, was admitted to Medical Room 245-. Patient/family oriented to hospital policies and general routines including ID bracelet, bed and alarms, visiting hours, pain management, procedures, bathroom and other care routines, personal items, smoking policy, room service/diet, and visiting hours. Information on how to activate the Rapid Response Team has been discussed. Patient/Family are encouraged to report perceived risks to care and to ask questions if they do not understand what they are told or what they should do.
[2024-10-20] MEDS: ASPIRIN 81 MG ENTERIC TABLET PO (08:15)
[2024-10-20] MEDS: ENOXAPARIN 40 MG/0.4 ML SYRINGE SUB-Q (08:15)
[2024-10-20 09:00] LABS: Cholesterol 206 mg/dL (0-200); HDL Direct 62 mg/dL; Magnesium 1.9 mg/dL (1.6-2.3); Triglycerides 147 mg/dL (<150)
[2024-10-20 09:10] LABS: Hemoglobin A1C 5.4 % (<5.7)
[2024-10-20 09:11] LABS: LDL Cholesterol Direct 93 mg/dL
--- NOTE | 2024-10-20 09:24 | P.HP_ITS ---
H&P: HPI History of Present Illness Date/Time: 10/20/24 09:24 Chief Complaint: AMS/Hand numbness Narrative: Patient is a 78-year-old female who presented to the emergency department with complaints of altered mental status and hand numbness. Patient reports around 1900 prior to arrival she developed a sudden onset wavy lines to her vision visual changes and right hand numbness. Patient stated at time of event she does not recall events however did report she did not notice any facial droop or slurred speech however her pattern have speech and change. patient states symptoms resolved within 30 minutes and currently with no deficits. patient reports a past medical history of arthritis currently on no home medications. initial findings in the emergency department showed a neg ative CT head if any current acute intracranial process, NIH score was 0 as reported in ED. CTA showed no significant stenosis, labs were reviewed which was suspicious for urinary tract infection which time patient was started on IV ceftriaxone otherwise all other labs unremarkable and vitals stable. patient was admitted for further observation for TIA versus CVA with plan for MRI brain. patient denied any chest pain, shortness a breath, dizziness, current visual changes, nausea, vomiting, or extremity weakness. Review of Systems 2 Review of Systems: All systems reviewed & are unremarkable except as noted in HPI and below PMFSH Past Medical History Medical History Arthritis Family History Family History Mother Family history of Alzheimer's disease Social History Social History Smoking status: Never smoker Second hand tobacco smoke exposure: No Alcohol intake: never Substance use: never Substance use type: does not use Do You Feel Safe in your Home?: Yes Lack of Transportation: No Lack of Food: Never True Current Housing: I Have Housing Concerned About Future Housing: No Difficulty Paying Gas/Electric Bills: No Difficulty Paying for Meds: No Currently Unemployed: No Education: Don't Know Difficulty w/ Childcare or Family Care: No Living arrangements: with family Occupation/Education: retired Gender identity (if verbalized by the patient): Female Sexual Orientation (if Verbalized by the Patient): Straight or Heterosexual Spiritual care concerns: No Meds Home Medications and Allergies Home Medications ?Medication ?Instructions ?Recorded ?Confirmed ?Type No Home Medications 11/04/23 10/20/24 History aspirin 81 mg tablet,delayed 81 mg PO QAM #30 tabs 10/20/24 Rx release cephalexin 500 mg capsule 500 mg PO Q12H #8 caps 10/20/24 Rx Allergies Allergy/AdvReac Type Severity Reaction Status Date / Time Penicillins Allergy Unknown Hives Verified 10/20/24 05:39 Vital Signs Vital Signs - 24 hr 10/19/24 21:25 10/19/24 23:46 10/19/24 23:52 Temperature 98.2 F Pulse Rate 81 75 78 Respiratory Rate 18 17 17 Blood Pressure 163/73 H 144/68 H Pulse Oximetry 98 97 97 Oxygen Delivery Room Air 10/20/24 00:15 10/20/24 00:16 10/20/24 00:20 Temperature Pulse Rate 76 75 79 Respiratory Rate 17 23 H 22 H Blood Pressure 136/68 136/68 Pulse Oximetry 97 98 98 Oxygen Delivery 10/20/24 00:28 10/20/24 00:37 10/20/24 00:45 Temperature Pulse Rate 76 74 Respiratory Rate 32 H 18 Blood Pressure Pulse Oximetry 99 98 100 Oxygen Delivery Room Air 10/20/24 00:46 10/20/24 01:00 10/20/24 01:01 Temperature Pulse Rate 74 66 69 Respiratory Rate 22 H 15 13 Blood Pressure 141/71 H 142/70 H Pulse Oximetry 99 99 98 Oxygen Delivery 10/20/24 01:45 10/20/24 02:00 10/20/24 02:06 Temperature Pulse Rate 75 71 71 Respiratory Rate 18 19 25 H Blood Pressure 135/66 Pulse Oximetry 100 98 99 Oxygen Delivery 10/20/24 02:27 10/20/24 02:30 10/20/24 02:31 Temperature Pulse Rate 69 70 70 Respiratory Rate 17 15 16 Blood Pressure 133/70 Pulse Oximetry 99 98 98 Oxygen Delivery 10/20/24 02:45 10/20/24 03:00 10/20/24 03:01 Temperature Pulse Rate 69 65 66 Respiratory Rate 15 16 17 Blood Pressure 136/69 Pulse Oximetry 98 98 98 Oxygen Delivery 10/20/24 03:26 10/20/24 03:32 10/20/24 03:45 Temperature Pulse Rate 63 72 82 Respiratory Rate 16 19 18 Blood Pressure Pulse Oximetry 97 97 99 Oxygen Delivery 10/20/24 04:00 10/20/24 04:01 10/20/24 04:15 Temperature Pulse Rate 69 71 73 Respiratory Rate 16 12 14 Blood Pressure 132/63 Pulse Oximetry 100 100 100 Oxygen Delivery 10/20/24 04:30 10/20/24 04:45 10/20/24 06:00 Temperature 97.3 F L Pulse Rate 77 75 79 Respiratory Rate 13 17 20 Blood Pressure 129/65 104/48 L Pulse Oximetry 98 98 95 Oxygen Delivery Exam Const: General: comfortable and no acute distress HENMT: Mouth: Yes moist mucous membranes Eyes: General: appearance normal, both eyes and all related structures Pupils: Equal, round and reactive pupils present Neck: Neck: supple and no JVD Resp: Effort & Inspection: normal respiratory effort Auscultation: clear to auscultation bilaterally Cardio: Rate: regular rate Rhythm: regular rhythm GI: GI Palp: Yes Soft to palpation Auscultation: normal bowel sounds Skin: General skin exam: normal color and no rashes or lesions noted Wounds: no wounds Neuro: General: gait normal Speech: normal speech Motor exam (neuro): 5/5 motor strength present throughout Sensory Exam: normal sensation Psych: Mental Status: mental status grossly normal Affect: normal affect H&P: Results Labs Labs: Short CBC 10/20/24 Range/Units 00:19 WBC 8.7 (4.5-10.0) K/mm3 Hgb 12.5 (12.0-15.0) g/dL Hct 39.6 (37.0-47.0) % Plt Count 228 (150-375) k/mm3 [facility] 10/20/24 00:19 Sodium 139 Potassium 3.9 Chloride 105 Carbon Dioxide 23 BUN 22 H Creatinine 0.75 Glucose 105 Calcium 9.6 Cardiac Enzymes 10/20/24 Range/Units 00:19 Troponin I < 0.012 (0.000-0.034) ng/mL Liver Function 10/20/24 Range/Units 00:19 Total Bilirubin 0.5 (0.2-1.3) mg/dL AST 22 (14-36) U/L ALT 17 (6-35) U/L Alkaline Phosphatase 98 (38-126) U/L Albumin 4.5 (3.5-5.1) g/dL Urine 10/20/24 Range/Units 02:52 Urine Color Yellow (Yellow) Urine Appearance Clear (Clear) Urine pH 5.5 (5.0-9.0) Ur Specific Welch > 1.045 H (1.001-1.035) Urine Protein Negative (Negative) mg/dL Urine Glucose (UA) Negative (Negative) mg/dL Assessment and Plan Assessment and plan (1) TIA (transient ischemic attack): Code(s): G45.9 - Transient cerebral ischemic attack, unspecified Status: Acute Assessment and Plan: Patient with episode of visual changes, poor speech pattern, and hand numbness x 30 minutes currently all resolved * Neuro check q.4 hour for the 1st 24 hours. 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 * Blood pressure management. -Keep the systolic blood pressure more than 200 or diastolic more than 110. Then lower blood pressure by 15% within the 1st 24 hours. * MRI of the brain without contrast. * CT scan with no acute intracranial process * CTA with no significant stenosis * Check for LDL and hemoglobin A1c. cholesterol 206: may not hurt start low- dose atorvastatin * Add statins 20 mg q.day, aspirin 81 mg g q.day/ will wait to start pending Plavix MRI * echo w/bubble study pending (2) Acute UTI: Code(s): N39.0 - Urinary tract infection, site not specified Status: Acute Assessment and Plan: * UA: leukocyte positive, 11 20+ WBC, no bacteriuria * IV ceftriaxone pending culture Plan Code status: Full code per patient DVT prophylaxis: Lovenox Stress ulcer prophylaxis: NA PT/OT notes: Ambulatory Disposition: patient admitted for further evaluation and treatment of possible TIA MR I of brain and echocardiogram pending. currently no deficits patient ambulatory and plan to discharge to home. Quality VTE Prophylaxis VTE prophylaxis: pharmacologic ordered -Patient's previous records reviewed on admission -ER notes reviewed in detail on admission -discussed all findings and current treatment plan with patient/Family/POA -Consultations reviewed for recommendations -Patient's disposition for safe discharge discussed with caser up Dictation performed by [employer] direct speech recognition software, therefore parer variants and typographical errors may occur. Hospitalist [facility] Advance Care Plan I have confirmed that the patient's Advanced Care Plan is present, code status is documented, or surrogate decision maker is listed in patient medical record.: Yes Medication Reconciliation I have utilized all available resources to obtain, update and review the patients current medications (includes all prescriptions, OTC, herbals, ca nnabis, and nutritional supplements).: Yes The patient is not eligible for med reconciliation; the patient is in a emergent medical situation where delaying treatment would jeopardize the patients health.: No
[2024-10-20 09:30] LABS: Thyroid Stimulating Hormone 0.824 uIU/mL (0.465-4.680)
--- NOTE | 2024-10-20 14:19 | P.SS_ITS ---
Same Day Admit/Disch: HPI History of Present Illness Chief complaint: Memory loss/Hand numbness Narrative: Patient is a 78-year-old female who presented to the emergency department with complaints of altered mental status and hand numbness. Patient reports around 1900 prior to arrival she developed a sudden onset wavy lines to her vision visual changes and right hand numbness. Patient stated at time of event she does not recall events however did report she did not notice any facial droop or slurred speech however her pattern have speech and change. patient states symptoms resolved within 30 minutes and currently with no deficits. patient reports a past medical history of arthritis currently on no home medications. initial findings in the emergency department showed a negative CT head if any current acute intracranial process, NIH score was 0 as reported in ED. CTA showed no significant stenosis, labs were reviewed which was suspicious for urinary tract infection which time patient was started on IV ceftriaxone otherwise all other labs unremarkable and vitals stable. patient was admitted for further observation for TIA versus CVA with plan for MRI brain. patient denied any chest pain, shortness a breath, dizziness, current visual changes, nausea, vomiting, or extremity weakness. [facility] Past Medical History Medical History Arthritis Family History Family History Mother Family history of Alzheimer's disease Social History Social History Smoking status: Never smoker Second hand tobacco smoke exposure: No Alcohol intake: never Substance use: never Substance use type: does not use Do You Feel Safe in your Home?: Yes Lack of Transportation: No Lack of Food: Never True Current Housing: I Have Housing Concerned About Future Housing: No Difficulty Paying Gas/Electric Bills: No Difficulty Paying for Meds: No Currently Unemployed: No Education: Don't Know Difficulty w/ Childcare or Family Care: No Living arrangements: with family Occupation/Education: retired Gender identity (if verbalized by the patient): Female Sexual Orientation (if Verbalized by the Patient): Straight or Heterosexual Spiritual care concerns: No Same Day Admit/Disch: Med Pre-admit Medications Home Medications ?Medication ?Instructions ?Recorded ?Confirmed ?Type No Home Medications 11/04/23 10/20/24 History aspirin 81 mg tablet,delayed 81 mg PO QAM #30 tabs 10/20/24 Rx release cephalexin 500 mg capsule 500 mg PO Q12H #8 caps 10/20/24 Rx Review of Systems Review of Systems All systems reviewed & are unremarkable except as noted in HPI and below Exam Const: General: comfortable and no acute distress HENMT: Mouth: Yes moist mucous membranes Eyes: General: appearance normal, both eyes and all related structures Pupils: Equal, round and reactive pupils present Neck: Neck: supple and no JVD Resp: Effort & Inspection: normal respiratory effort Auscultation: clear to auscultation bilaterally Cardio: Rate: regular rate Rhythm: regular rhythm GI: Auscultation: normal bowel sounds Skin: General skin exam: normal color and no rashes or lesions noted Wounds: no wounds Neuro: General: gait normal Cranial nerves: Yes Equal, round and reactive pupils present Speech: normal speech Motor exam (neuro): 5/5 motor strength present throughout Sensory Exam: normal sensation Psych: Mental Status: mental status grossly normal Affect: normal affect DS: Data Data Completed and Pending Labs on day of discharge: Labs from last 24 hours 10/20/24 10/20/24 10/20/24 08:24 02:52 00:22 WBC RBC Hgb Hct MCV MCH MCHC RDW Plt Count MPV Immature Gran % (Auto) Neut % (Auto) Lymph % (Auto) [place] % (Auto) Eos % (Auto) Baso % (Auto) Lymph # (Auto) [place] # (Auto) Eos # (Auto) Baso # (Auto) Abs Immat Gran (auto) Absolute Neuts (auto) Absolute Nucleated RBC Nucleated RBC % PT INR APTT Sodium Potassium Chloride Carbon Dioxide Anion Gap BUN Creatinine Estim Creat Clear Calc Estimated GFR Glucose POC Capillary Glucose 106 H Hemoglobin A1c 5.4 Calcium Magnesium 1.9 Total Bilirubin AST ALT Alkaline Phosphatase Troponin I Total Protein Albumin Triglycerides 147 Cholesterol 206 H LDL Cholesterol Direct 93 HDL Direct 62 TSH 0.824 Urine Color Yellow Urine Appearance Clear Urine pH 5.5 Ur Specific [place] > 1.045 H Urine Protein Negative Urine Glucose (UA) Negative Urine Ketones Negative Ur Blood (Man) Non-hemolyzed trace H Urine Nitrate Negative Urine Bilirubin Negative Urine Urobilinogen 0.2 Leukocyte Esterase Rfl 1+ H Urine RBC 0-2 Urine WBC 11-20 H Ur Squamous Epith Cells None seen Urine Bacteria None seen Urine Casts 0-2 10/20/24 10/19/24 00:19 21:16 WBC 8.7 RBC 4.88 Hgb 12.5 Hct 39.6 MCV 81.1 MCH 25.6 L MCHC 31.6 L RDW 14.2 Plt Count 228 MPV 9.7 Immature Gran % (Auto) 0.5 Neut % (Auto) 66.3 Lymph % (Auto) 25.6 [place] % (Auto) 6.7 Eos % (Auto) 0.3 Baso % (Auto) 0.6 Lymph # (Auto) 2.23 [place] # (Auto) 0.6 Eos # (Auto) 0.0 Baso # (Auto) 0.1 Abs Immat Gran (auto) 0.04 H Absolute Neuts (auto) 5.8 Absolute Nucleated RBC 0.000 Nucleated RBC % 0.0 PT 12.7 INR 0.9 APTT 27.0 Sodium 139 Potassium 3.9 Chloride 105 Carbon Dioxide 23 Anion Gap 11 BUN 22 H Creatinine 0.75 Estim Creat Clear Calc 46 Estimated GFR > 60 Glucose 105 POC Capillary Glucose 100 Hemoglobin A1c Calcium 9.6 Magnesium Total Bilirubin 0.5 AST 22 ALT 17 Alkaline Phosphatase 98 Troponin I < 0.012 Total Protein 7.0 Albumin 4.5 Triglycerides Cholesterol LDL Cholesterol Direct HDL Direct TSH Urine Color Urine Appearance Urine pH Ur Specific [place] Urine Protein Urine Glucose (UA) Urine Ketones Ur Blood (Man) Urine Nitrate Urine Bilirubin Urine Urobilinogen Leukocyte Esterase Rfl Urine RBC Urine WBC Ur Squamous Epith Cells Urine Bacteria Urine Casts Imaging Radiologist's impression: EXAMINATION: CTA brain carotid DATE: 10/20/2024 01:27 INDICATION: Right hand numbness. Vision change. TECHNIQUE: Computed tomographic angiography (CTA) of the head was performed with 100 mL Omnipaque-350 intravenous contrast. CTA of the neck was performed with intravenous contrast. Automated exposure control and iterative reconstruction technique were employed. The dose-length product was 990.89 mGy-cm. Maximum intensity projection and volume rendered 3D-reconstructions were created by the technologist on a separate workstation. COMPARISON: Head CT 10/20/2024 FINDINGS: HEAD CTA: There are scattered areas of low attenuation in the cerebral white matter. There is no intracranial hemorrhage, acute infarction, or abnormal intracranial mass lesion. The ventricles are normal in size. There are likely changes of ocular lens replacement surgeries. There is mild mucosal thickening in the paranasal sinuses. The mastoid air cells are normal. Left vertebral artery is dominant. There is no significant stenosis of basilar artery or the posterior cerebral arteries. There is no significant stenosis of the intracranial internal carotid arteries or anterior or middle cerebral arteries. Anterior communicating artery is normal. The posterior communicating arteries are normal. There is no aneurysm. NECK CTA: There is mild scarring at the lung apices. There are no pathologically enlarged lymph nodes. There is no significant stenosis of the vertebral arteries. There is minimal plaque in the proximal internal carotid arteries. There is 0% stenosis of the proximal right internal carotid artery relative to normal distal artery lumen diameter (NASCET criteria). There is 0% stenosis of the proximal left internal carotid artery relative to normal distal artery lumen diameter. There is severe cervical spondylosis. IMPRESSION: 1. Mild nonspecific cerebral white matter disease, which likely represents chronic small vessel ischemic disease. 2. No aneurysm or significant intracranial arterial stenosis. 3. 0% stenosis of the proximal internal carotid arteries relative to normal distal artery lumen diameters (NASCET criteria). EXAMINATION: MR brain/brain stem wo/w con DATE: 10/20/2024 11:26 INDICATION: Right hand numbness. TECHNIQUE: Magnetic resonance imaging (MRI) of the brain and brainstem was performed without and with 13 mL ProHance intravenous contrast. COMPARISON: CT 10/20/2024 FINDINGS: There are scattered areas of nonspecific increased T2-weighted signal intensity in the cerebral white matter. There is no intracranial hemorrhage, acute infarction, or abnormal intracranial mass lesion. The ventricles are normal in size. The paranasal sinuses are clear. There are likely changes of ocular lens replacement surgeries. The mastoid air cells are normal. IMPRESSION: 1. Mild nonspecific cerebral white matter disease, which likely represents chronic small vessel ischemic disease. DS: Summary Hospital Course Reason for hospitalization: Possible TIA Hospital Course: Patient is a 78-year-old female who presented to the emergency department with complaints of altered mental status and hand numbness. Patient reports around 1900 prior to arrival she developed a sudden onset wavy lines to her vision visual changes and right hand numbness. Patient stated at time of event she does not recall events however did report she did not notice any facial droop or slurred speech however her pattern have speech and change. patient states symptoms resolved within 30 minutes and currently with no deficits. patient reports a past medical history of arthritis currently on no home medications. initial findings in the emergency department showed a negative CT head if any current acute intracranial process, NIH score was 0 as reported in ED. CTA showed no significant stenosis, labs were reviewed which was suspicious for urinary tract infection which time patient was started on IV ceftriaxone otherwise all other labs unremarkable and vitals stable. patient was admitted for further observation for TIA versus CVA with plan for MRI brain. patient denied any chest pain, shortness a breath, dizziness, current visual changes, nausea, vomiting, or extremity weakness. Patient With no further deficits reported to hand improved. CT head showed no anterior cranial process CTA with normal brain and MRI showed mild nonspecific cerebral white matter disease. Patient's total cholesterol mildly elevated to 0 6 spoke with patient regarding start to like at this time to defer that and follow up with her primary in 3 months for follow-up lipid panel. Patient was agreeable to and aspirin 81 mg daily. An A1c was 5.4 all other labs and vitals reviewed and unremarkable. I did recommend to patient to follow-up with primary care physician for outpatient echocardiogram and possible event monitor to rule out any cardiac event. Patient and spouse at bedside both acknowledged and agreed with discharge plan patient was discharged. Status at Discharge Functional status at discharge: independent ambulation Overall status at discharge: patient is back to baseline Time Spent with Patient Time attestation: Total time spent providing and/or coordinating discharge services: Time spent: Greater than 30 minutes DS: Admitting Diagnosis Discharge Date 10/20/24 Admitting Diagnosis TIA DS: Discharge Diagnosis Discharge Diagnosis (1) TIA (transient ischemic attack): Code(s): G45.9 - Transient cerebral ischemic attack, unspecified Status: Acute Assessment and Plan: Patient with episode of visual changes, poor speech pattern, and hand numbness x 30 minutes currently all resolved * Neuro check q.4 hour for the 1st 24 hours. * medical claims manager and telemetry continuously. * Blood pressure management. -Keep the systolic blood pressure more than 200 or diastolic more than 110. Then lower blood pressure by 15% within the 1st 24 hours. * MRI of the brain without contrast. * CT scan with no acute intracranial process * CTA with no significant stenosis * Check for LDL and hemoglobin A1c. cholesterol 206: may not hurt start low- dose atorvastatin * Add statins 20 mg q.day, aspirin 81 mg g q.day/ will wait to start pending Plavix MRI * echo w/bubble study pending (2) Acute UTI: Code(s): N39.0 - Urinary tract infection, site not specified Status: Acute Assessment and Plan: * UA: leukocyte positive, 11 20+ WBC, no bacteriuria * IV ceftriaxone pending culture Plan Code status: Full code per patient DVT prophylaxis: Lovenox Stress ulcer prophylaxis: NA PT/OT notes: Ambulatory Disposition: patient admitted for further evaluation and treatment of possible TIA MR I of brain and echocardiogram pending. currently no deficits patient ambulatory and plan to discharge to home. Discharge Plan Discharge Attending physician on discharge: Christian Harris Consulting providers: Pura Brennan Discharging Clinician: Pura Brennan Anticipated Discharge Date/Time: 10/20/24 12:44 Patient Disposition: Home, Self-Care Activity: may shower and as tolerated Diet: heart healthy and low cholesterol Discharge Instructions: TIA: * We performed a CT head and MRI that did not show an acute stroke however you may have had a TIA. Information is attached * Please seek medical attention of symptoms return * I have prescribed aspirin 81mg daily * I will defer starting a Statin at this time per your request cholesterol was 206 may follow-up with primary recommend low cholesterol diet and follow-up lipid panel in 3 months * I have also included an order for a echocardiogram neck can be completed outpatient * I also recommend your primary order an event monitor to rule/out any cardiac arrhythmias UTI: * I have prescribed Keflex for your UTI please take as directed and complete even if feeling better How can you care for yourself at home? ? Keep track of any new symptoms or changes in your symptoms. ? Rest until you feel better. ? Be safe with medicines. Take your medicines exactly as prescribed. Call your doctor if you think you are having a problem with your medicine. ? Do not drive after taking a prescription pain medicine. ? Ensure to follow-up with primary care physician as indicated and provide updated medication list provided to you at discharge. When should you call for help? Call 911 anytime you think you may need emergency care. For example, call if: ? You passed out (lost consciousness). Call your doctor now or seek immediate medical care if: ? You have new symptoms like fever, difficulty breathing, Chest pain, vomiting, or rash. ? You have new or different pain. ? You are confused and are having trouble thinking clearly. ? Your symptoms are getting worse. Watch closely for changes in your health, and be sure to contact your doctor if: ? You do not get better as expected. Patient Instructions: Antibiotic Form, Transient Ischemic Attack (DC), Urinary Tract Infection in Older Adults (DC) Patient Language: Yakut Stand Alone Forms: General Discharge Information Follow-up/Referrals: Eddie Bravo MD [Primary Care Provider] - 2 Weeks Discharge Medications: New aspirin 81 mg Tablet,Delayed Release (Dr/Ec) 81 mg PO QAM Qty: 30 0RF cephalexin 500 mg capsule 500 mg PO Q12H Qty: 8 0RF No Action No Home Medications Date of admission: 10/20/24 03:52 Primary Care Provider: Eddie Bravo Admitting Provider: Bisi Spence Attending physician on admission: Bisi Spence Condition: Stable Quality VTE Prophylaxis VTE prophylaxis: pharmacologic ordered -Patient's previous records reviewed on admission -ER notes reviewed in detail on admission -discussed all findings and current treatment plan with patient/Family/POA -Consultations reviewed for recommendations -Patient's disposition for safe discharge discussed with correctional case records supervisor Dictation performed by [employer] direct speech recognition software, therefore design architect variants and typographical errors may occur. Hospitalist MIPS Advance Care Plan I have confirmed that the patient's Advanced Care Plan is present, code status is documented, or surrogate decision maker is listed in patient medical record.: Yes Medication Reconciliation I have utilized all available resources to obtain, update and review the patients current medications (includes all prescriptions, OTC, herbals, cannabis, and nutritional supplements).: Yes The patient is not eligible for med reconciliation; the patient is in a emergent medical situation where delaying treatment would jeopardize the patients health.: No Heart Failure (Exclusion) Patient has history of Heart Transplant or Left Ventricular Assistive Device?: No IF YES, STOP HERE Heart Failure (Qualifier) Patient has current or prior documentation of LVEF less than or equal to 40%, or mod/servere depressed LVSF?: No IF NO, STOP HERE
== END 2024-10-20 13:30 | disposition home or self-care (01) ==
LOC: ANHED 10-20 03:51 → ANH2MED 10-20 07:57
PROVIDERS: Nurse Practitioner Family; Admitting Provider Internal Medicine; Emergency Provider Emergency Medicine; PCP Family Medicine; Visit Provider Internal Medicine
DX: G45.9 Transient cerebral ischemic attack, unspecified (principal); R29.700 NIHSS score 0; N39.0 Urinary tract infection, site not specified; M19.90 Unspecified osteoarthritis, unspecified site
CPT/HCPCS: 36415; 70450; 70496; 70498; 70553; 71045; 80053; 80061; 81001; 82948; 83036; 83735; 84443; 84484; 85025; 85610; 85730; 87086; 93005; 96372; 96374; 99285; A9270; A9579; G0378; J0696; J1650; J7030; Q9967